=== PATIENT | female | born 1945 | race Caucasian/White ===

== ENCOUNTER → 2017-04-30 | Outpatient (CLI) | payer OTHER ==
[~2017-04-30] MED LIST: REGADENOSON 0.4 MG/5 ML IV ONE; SODIUM CHLORIDE 0.9% 10ML VIAL ONE
== END | disposition home or self-care (01) ==
LOC: NM 06:51
PROVIDERS: ATTEND Internal Medicine Clinical Cardiac Electrophysiology
DX: I11.9 Hypertensive heart disease without heart failure (principal); I44.7 Left bundle-branch block, unspecified; I48.1 Persistent atrial fibrillation
CPT/HCPCS: 78452; 93017; A4216; A9500; C1893; J2785

== ENCOUNTER 2018-12-10 06:51 | Day surgery (SDC) | payer OTHER ==
[~2018-12-10] VITALS: Ht 157.5 cm; Wt 74.4 kg
[2018-12-10 08:32] LABS: BASOPHILS % 0.7 % (0.0-2.0); HEMATOCRIT. 41.5 % (36.0-48.0); HEMOGLOBIN. 14.4 g/dL (12.0-16.0); LYMPHOCYTES % 26.6 % (20.0-50.0); MEAN CORPUSCULAR HEMOGLOBIN 33.6 pg (28.0-32.0); MEAN CORPUSCULAR VOLUME 96.8 fL (81.0-99.0); MEAN PLATELET VOLUME 8.6 fl (7.4-10.4); MONOCYTES % 5.2 % (2.0-8.0); NEUTROPHILS % 67.5 % (40.0-76.0); PLATELET 188 x1000/uL (130-400); RED BLOOD CELL COUNT 4.29 mill/uL (4.2-5.4); RED CELL DISTRIBUTION WIDTH 12.6 % (11.6-14.6)
[2018-12-10 08:34] LABS: CHLORIDE 108 mEq/L (98-107)
[2018-12-10 08:37] LABS: PARTIAL THROMBOPLASTIN TIME 26.6 sec (23.4-31.0); PROTHROMBIN TIME 10.2 sec (9.6-11.0)
[2018-12-10] MEDS ORDERED: MV-M1TAB19 PO (09:15)
[2018-12-10] MEDS ORDERED: SOTA80TA PO (09:15)
[2018-12-10] MEDS ORDERED: ASPI-1393 PO (09:15)
[2018-12-10] MEDS ORDERED: FLUD0.1T PO (09:15)
[2018-12-10] MEDS ORDERED: APIX5TAB PO (09:15)
[2018-12-10] MEDS ORDERED: ATOR40TA70 PO (09:15)
[2018-12-10] MEDS ORDERED: MULT-1146 PO (09:15)
[2018-12-10] MEDS ORDERED: FISH PO (09:15)
[2018-12-10] MEDS ORDERED: MIDAZOLAM HCL 2 MG/2 ML VIAL ONE (09:47)
[2018-12-10] MEDS ORDERED: PROPOFOL 200MG/20ML VIAL IV ONE (09:48)
== END 2018-12-10 12:10 | disposition home or self-care (01) ==
LOC: CARD 06:51 → CCL 12:10
PROVIDERS: ATTEND Internal Medicine Clinical Cardiac Electrophysiology
DX: I48.19 Other persistent atrial fibrillation (principal); I44.7 Left bundle-branch block, unspecified; I10 Essential (primary) hypertension; E03.9 Hypothyroidism, unspecified; Z79.899 Other long term (current) drug therapy; Z90.49 Acquired absence of other specified parts of digestive tract; Z98.890 Other specified postprocedural states
CPT/HCPCS: 36415; 80048; 82962; 85025; 85610; 85730; 92960; 93005; J2250; J2704; J7040